=== PATIENT | male | born 1985 | race Caucasian/White ===

== ENCOUNTER 2021-10-04 17:19 | Emergency (ER) | payer OTHER ==
[~2021-10-04 17:19] MED LIST: CIPRO500 MG PO; FLOMAX 0.4 MG0.4 MG PO; NORCO 10-325 T1 EACH PO
[2021-10-04 18:44] LABS: BASOPHIL 0.5 % (0-2); EOSINOPHIL 1.8 % (0-5); HCT 44.4 % (42.0-52.0); HGB 14.6 g/dl (13.2-18.0); MCHC 32.9 g/dL (32.0-36.0); MCV 88.3 fL (78.0-100.0); MPV 11.4 fL (6.0-9.5); NEUTROPHIL 52.6 % (41-80); NRBC 0; PLT 337 K/uL (150-400); RBC 5.03 M/uL (4.70-6.00); RDW 14.6 % (11.5-14.0); WBC 13.5 K/uL (4.0-10.5)
[2021-10-04 18:48] LABS: LYMPHOCYTE 37.8 % (15-48)
[2021-10-04 18:57] LABS: BUN/CREAT RATIO (CALC) 19.1 RATIO; CREATININE 1.1 mg/dL (0.67-1.17); POTASSIUM 3.9 mmol/L (3.5-5.1)
[2021-10-04] MEDS ORDERED: BACLOFEN 10MG T10 MG PO (20:36)
[2021-10-04] MEDS ORDERED: NAPROXEN500 MG PO (20:36)
== END 2021-10-04 20:59 | disposition home or self-care (01) ==
LOC: FER 17:19
PROVIDERS: Nurse Practitioner Family
DX: G44.209 Tension-type headache, unspecified, not intractable (principal); I10 Essential (primary) hypertension; E78.5 Hyperlipidemia, unspecified; F17.210 Nicotine dependence, cigarettes, uncomplicated; Z79.899 Other long term (current) drug therapy
CPT/HCPCS: 36415; 70450; 72125; 80048; 85025; J1100; J1885; J7030

== ENCOUNTER 2021-10-17 07:08 | Emergency (ER) | payer OTHER ==
[~2021-10-17 07:08] MED LIST changes: +BACLOFEN 10MG T10 MG PO; +NAPROXEN500 MG PO
[2021-10-17] MEDS ORDERED: NAPROXEN500 MG PO (08:40)
== END 2021-10-17 09:08 | disposition home or self-care (01) ==
LOC: FER 07:08
DX: M54.81 Occipital neuralgia (principal); I10 Essential (primary) hypertension; F17.210 Nicotine dependence, cigarettes, uncomplicated; Z79.899 Other long term (current) drug therapy
CPT/HCPCS: Q9967